=== PATIENT | female | born 2000 | race Caucasian/White ===

== ENCOUNTER 2018-07-09 19:00 | Inpatient (IN) | payer OTHER, SELFPAY ==
[2018-07-09] MEDS: Lactated Ringers 1,000 ML 50 ML IV (19:25)
[2018-07-09 19:32] VITALS: BMI 27.5
[2018-07-09] MEDS: Oxytocin 30 units/NS 500 ml 30 UNITS/500 ML IV.SOLN IV (19:58)
[2018-07-09 20:15] LABS: Hematocrit 37.4 % (37-47); Hemoglobin 12.5 g/dl (12.0-15.0); Mean Corp Hgb Conc 33.4 g/gl (32-36); Mean Corpuscular Hgb 30.6 pg (27.0-32.0); Mean Corpuscular Volume 91.4 fL (81-99); Mean Platelet Vol. 9.4 fl (6.2-12.0); Platelet Count 266 K/mm3 (150-450); RBC Distribution Width CV 13.2 % (11.6-14.6); RBC Distribution Width SD 43.4 fl (35.1-43.9); Red Blood Count 4.09 M/mm3 (4.2-5.4); White Blood Count 11.3 K/mm3 (4.4-11.0)
[2018-07-09 20:19] LABS: Scan Indicated on CBC? Y/N NO
--- NOTE | 2018-07-09 21:16 | PCM.HP.OB ---
History Date of Admission: 07/09/18 Final MARIMAR: 07/03/18 Final MARIMAR Source: US <20 weeks Gestational age: 40 Weeks and 6 Days History of this : This is a 17 year-old, G 1P0 @ 40 6/7 weeks for induction of labor due to 41 weeks tomorrow. She was seen in the office today and had an amniotic fluid volume of 6 cm. I discussed with her at that time risk benefits and alternatives to induction of labor. I recommended induction of labor at 41 weeks versus expectant management with the borderline fluid level measurement. Consent was signed. She denies any regular contractions, vaginal bleeding or leaking of fluid.. Her has been uncomplicated to date other than some nausea and vomiting early in , and some antepartum anemia. Allergies No Known Allergies Allergy (Verified 07/09/18 19:32) Home Medications: Home Medications Ferrous Sulfate [Iron] 325 mg PO BID 07/09/18 Vits [Prenatabs FA] 1 tablet PO DAILY 07/09/18 Smoking Status: Never smoker Number of Fetus(es): 1 Heart Tracing: Normal baseline, moderate variability, spontaneous accelerations. Category 1 and reactive TOCO Analysis: Irregular contractions History Past Pregnancies: Past Pregnancies Delivery Date Name GA/Weeks Outcome Route Weight Infant Gender Labor Length Anesthesia Delivery Location Provider FOB Expected Delivery Method: Spontaneous Vaginal Review of Systems Constitutional: Denies: Chills, Fever Cardiovascular: Denies: Edema Respiratory: Denies: Cough Skin: Denies: Rash Physical Exam General: Alert, Cooperative, No apparent distress Cardiovascular: Regular rate Lungs: Normal air movement Abdomen: Soft, Non-Distended, Gravid, Appropriate for Gestational Age Extremities:: No edema Neurological: Negative for: Slurred Speech OCCUPANCY SPECIALIST: Normal external genitalia Estimated gestational size: Appropriate for gestational size Presentation: Cephalic Cervix Dilation (cm): 3 Station: -1 Effacement (%): 80 Assessment/Plan This is a 17 year-old, 1 para 0 at 40-6/7 weeks for induction of labor. Risk benefits alternatives were discussed. Consent was signed. She desires to proceed. We will proceed with Pitocin and artificial rupture of membranes. Official rupture membranes was performed with return of small amount of moderate meconium-stained fluid. Language Assistant will be notified. Estimated weight is less than 4500 mg and pelvis clinically adequate to expect vaginal delivery
--- NOTE | 2018-07-09 21:20 | HP.PCM_ITS ---
History Date of Admission: 07/09/18 Final MARIMAR: 07/03/18 Final MARIMAR Source: US <20 weeks Gestational age: 40 Weeks and 6 Days History of this : This is a 17 year-old, G 1P0 @ 40 6/7 weeks for induction of labor due to 41 weeks tomorrow. She was seen in the office today and had an amniotic fluid volume of 6 cm. I discussed with her at that time risk benefits and alternatives to induction of labor. I recommended induction of labor at 41 weeks versus expectant management with the borderline fluid level measurement. Consent was signed. She denies any regular contractions, vaginal bleeding or leaking of fluid.. Her has been uncomplicated to date other than some nausea and vomiting early in , and some antepartum anemia. Allergies No Known Allergies Allergy (Verified 07/09/18 19:32) Home Medications: Home Medications Ferrous Sulfate [Iron] 325 mg PO BID 07/09/18 Vits [Prenatabs FA] 1 tablet PO DAILY 07/09/18 Smoking Status: Never smoker Number of Fetus(es): 1 Heart Tracing: Normal baseline, moderate variability, spontaneous accelerations. Category 1 and reactive TOCO Analysis: Irregular contractions History Past Pregnancies: Past Pregnancies Delivery Date Name GA/Weeks Outcome Route Weight Infant Gender Labor Length Anesthesia Delivery Location Provider FOB Expected Delivery Method: Spontaneous Vaginal Review of Systems Constitutional: Denies: Chills, Fever Cardiovascular: Denies: Edema Respiratory: Denies: Cough Skin: Denies: Rash Physical Exam General: Alert, Cooperative, No apparent distress Cardiovascular: Regular rate Lungs: Normal air movement Abdomen: Soft, Non-Distended, Gravid, Appropriate for Gestational Age Extremities:: No edema Neurological: Negative for: Slurred Speech SOIL CONSERVATION AIDE: Normal external genitalia Estimated gestational size: Appropriate for gestational size Presentation: Cephalic Cervix Dilation (cm): 3 Station: -1 Effacement (%): 80 Assessment/Plan This is a 17 year-old, 1 para 0 at 40-6/7 weeks for induction of labor. Risk benefits alternatives were discussed. Consent was signed. She desires to proceed. We will proceed with Pitocin and artificial rupture of membranes. Official rupture membranes was performed with return of small amount of moderate meconium-stained fluid. Social Media Specialist will be notified. Estimated weight is less than 4500 mg and pelvis clinically adequate to expect vaginal delivery
[2018-07-10] MEDS: Lactated Ringers 1,000 ML 50 ML IV ×2 (00:02→03:00)
[2018-07-10] MEDS: Ondansetron 4 MG/2 ML Vial IV (00:35)
[2018-07-10] MEDS: Oxytocin 30 units/NS 500 ml 30 UNITS/500 ML IV.SOLN 334 UNITS IV (03:58)
--- NOTE | 2018-07-10 04:15 | PCM.OB.VAG ---
Vaginal Delivery Maternal Presentation: Medically Indicated Induction Method of Induction: Pitocin, Amniotomy Medical Reason for Induction: - - WEEKS Amniotic Membrane Rupture Type: Artificial Amniotic Fluid Description: Moderate meconium Final MARIMAR: 07/03/18 Gestational age: 41 Weeks and 0 Days Date of Procedure: 07/10/18 Pre-Operative Diagnosis: LABOR Post-Operative Diagnosis: SAME Surgery/ Procedure Performed: Spontaneous Vaginal Delivery Type of Anesthesia: Epidural Description of Procedure: A vigorous female infant was delivered YAJAIRA over a second-degree perineal laceration. A loose nuchal cord ?1 was easily reduced. The remainder the infant was delivered with maternal pushing and gentle traction only in less than 15 seconds. The Pitocin infusion was initiated for active management of the third stage. The cord was clamped and cut after 1 minute. The was attended to by the waiting nursing staff. The placenta was delivered spontaneously and intact. The cervix and vagina were intact. The second-degree perineal laceration was repaired with 3-0 Vicryl suture in a running standard fashion. Sponge and needle counts were correct. A vaginal sweep was completed by me. Presentation: YAJAIRA Placental Delivery Description: Spontaneous Placenta Disposition: [facility] Cord Vessel Description: 3 Vessels Nuchal Cord Compression: Without compression Cord Entanglement: Around neck x 1, loose Drain: Rashid to straight drain Estimated Blood Loss: 200 Infant A gender: Male (1 minute): 9 (5 minute): 9 Episiotomy Description: None Laceration: 2nd degree Medications given after delivery: IV Pitocin Complications: None
[2018-07-10] MEDS: Oxytocin 30 units/NS 500 ml 30 UNITS/500 ML IV.SOLN 167 UNITS IV (04:29)
[2018-07-10] MEDS: Naproxen 250 MG Tablet PO ×2 (06:47→15:46)
[2018-07-10 08:36] VITALS: BP 105/58; PULSE 101; RESP 16; TEMP 36.2; O2SAT 98
[2018-07-10] MEDS: Acetaminophen 500 MG Tablet 1000 MG PO ×2 (12:03→19:58)
[2018-07-10 12:05] VITALS: BP 110/55; PULSE 84; RESP 16; TEMP 36.6; O2SAT 98
[2018-07-10 15:48] VITALS: BP 118/64; PULSE 78; RESP 16; TEMP 36.9; O2SAT 99
[2018-07-10 20:40] VITALS: BP 115/54; PULSE 70; RESP 16; TEMP 36.9; O2SAT 97
[2018-07-10 23:55] VITALS: BP 134/68; PULSE 88; RESP 16; TEMP 36.7; O2SAT 96
[2018-07-11 04:30] VITALS: BP 109/63; PULSE 98; RESP 16; TEMP 36.8; O2SAT 97
[2018-07-11 07:40] VITALS: BP 97/59; PULSE 80; RESP 16; TEMP 36.8; O2SAT 97
--- NOTE | 2018-07-11 12:40 | PCM.PN.OB ---
Subjective: Pain well controlled. Average lochia. No complaints. - Physical Exam General: Alert, Cooperative, No apparent distress Vital Signs Temp Pulse Resp BP Pulse Ox 98.2 F 80 16 97/59 L 97 07/11/18 07:40 07/11/18 07:40 07/11/18 07:40 07/11/18 07:40 07/11/18 07:40 Oxygen Delivery Method Room Air Weight: 72.8 kg Body Mass Index (BMI) 27.5 Intake and Output for Last 24 Hours 07/09/18 07/10/18 07/11/18 23:59 23:59 23:59 Intake Total 178 / 178 2952 / 2952 Output Total 200 / 200 2049 / 2049 Balance -22 / -22 902 / 902 Medical Necessity - Tobacco Use Smoking Status: Never smoker Assessment/Plan day #1 status post vaginal delivery. Patient is doing well. Routine care. Likely discharge home tomorrow. is breast-feeding and doing well.
--- NOTE | 2018-07-11 12:42 | DCINST_ITS ---
Discharge Diet: No Restrictions Discharge Activity: Return to Normal Activity, May not drive while taking narcotic pain medications., May Shower May resume sexual activity in: 4-6 weeks Additional Activity Instructions:: Nothing in the vagina for 4-6 weeks. You may return to work/school in 6 weeks. Call your doctor if your incision/area has: Continuous Slow Oozing, Sudden Increased Bleeding, Increased Pain/ Swelling, Increased Redness, Foul Smelling Discharge Additional Instructions: If you experience any of the following, contact your healthcare provider. * Bleeding that soaks a pad every hour for 2 hours * Fever 100.4 or higher * Unrelieved incision or abdominal pain * Swelling, redness, discharge or bleeding from your incision or episiotomy site * Your incision begins to separate * Problems urinating (including inability to urinate or burning while urinating). * Visual changes * Severe headache * Flu-like symptoms * Pain or redness in one of both of your breasts * Pain, warmth, tenderness or swelling in your legs, especially the calf area * Frequent nausea and vomiting * Symptoms of depression or anxiety If you experience any of the following, call 911 or go to the nearest Emergency Room. * Chest pain * Problems breathing * Seizure activity * Partial or complete paralysis of a body part, slurred speech, weakness or drooping of the face, or a sudden inability to walk or hold your balance Allergies/Adverse Reactions: Allergies No Known Allergies Allergy (Verified 07/09/18 19:32) Medications to take at Discharge Vits [Prenatabs FA ] 1 tablet PO DAILY 07/09/18 Ibuprofen [Motrin] 800 mg PO TID PRN PRN #60 tablet 07/11/18 The following prescriptions were given: Ibuprofen [Motrin] 800 mg PO TID PRN PRN #60 tablet PRN Reason: Pain Please Follow Up With: Alexandria Stewart MD - [phone] When: Call to make an appointment with your provider's office in 1-2 and 6 weeks. Test Results: Test results from this visit will be discussed in further detail at your follow- up appointment, if applicable.
--- NOTE | 2018-07-11 12:42 | PCM.DCVAG ---
Discharge Diet: No Restrictions Discharge Activity: Return to Normal Activity, May not drive while taking narcotic pain medications., May Shower May resume sexual activity in: 4-6 weeks Additional Activity Instructions:: Nothing in the vagina for 4-6 weeks. You may return to work/school in 6 weeks. Call your doctor if your incision/area has: Continuous Slow Oozing, Sudden Increased Bleeding, Increased Pain/ Swelling, Increased Redness, Foul Smelling Discharge Additional Instructions: If you experience any of the following, contact your healthcare provider. Bleeding that soaks a pad every hour for 2 hours Fever 100.4 or higher Unrelieved incision or abdominal pain Swelling, redness, discharge or bleeding from your incision or episiotomy site Your incision begins to separate Problems urinating (including inability to urinate or burning while urinating). Visual changes Severe headache Flu-like symptoms Pain or redness in one of both of your breasts Pain, warmth, tenderness or swelling in your legs, especially the calf area Frequent nausea and vomiting Symptoms of depression or anxiety If you experience any of the following, call 911 or go to the nearest Emergency Room. Chest pain Problems breathing Seizure activity Partial or complete paralysis of a body part, slurred speech, weakness or drooping of the face, or a sudden inability to walk or hold your balance Allergies/Adverse Reactions: Allergies No Known Allergies Allergy (Verified 07/09/18 19:32) Medications to take at Discharge Vits [Prenatabs FA ] 1 tablet PO DAILY 07/09/18 Ibuprofen [Motrin] 800 mg PO TID PRN PRN #60 tablet 07/11/18 The following prescriptions were given: Ibuprofen [Motrin] 800 mg PO TID PRN PRN #60 tablet PRN Reason: Pain Please Follow Up With: Alexandria Stewart MD - [phone] When: Call to make an appointment with your provider's office in 1-2 and 6 weeks. Test Results: Test results from this visit will be discussed in further detail at your follow-up appointment, if applicable.
[2018-07-11 14:45] VITALS: BP 116/69; PULSE 98; RESP 16; TEMP 37; O2SAT 96
[2018-07-11] MEDS: Naproxen 250 MG Tablet PO (14:47)
[2018-07-11] MEDS: Senna/Docusate Sodium 1 Tablet PO (14:48)
[2018-07-11 21:10] VITALS: BP 116/60; PULSE 87; RESP 14; TEMP 37.1; O2SAT 96
[2018-07-12 02:05] VITALS: BP 111/60; PULSE 84; RESP 16; TEMP 36.8; O2SAT 97
[2018-07-12] MEDS: Naproxen 250 MG Tablet PO (06:40)
[2018-07-12 08:19] VITALS: BP 98/54; PULSE 77; RESP 18; TEMP 36.9; O2SAT 97
--- NOTE | 2018-07-12 08:25 | PCM.PN.OB ---
Subjective: Patient sitting up in bed resting at this time. Reports that baby did cluster feeding overnight, she is having a little pain with latching now. Denies issues with urination or ambulation; reports +flatus but no bowel movement yet. Desires discharge to home today. Objective: A+O x 3, NAD Nipples without cracks, blisters. No erythema noted. FF midline 3FB below umbilicus +2/4 reflexes in LE, no edema Scant rubra lochia, perineum well approximated negative calf tenderness in LE to palpation - Physical Exam General: Alert, Oriented x3, Cooperative HEENT: Atraumatic, Normocephalic Neck: Supple, Negative Carotid Bruits Lungs: Normal air movement Cardiovascular: Regular rate, No murmurs Abdomen: Soft, Non Tender Extremities: No edema, Capillary Refill Less than 3 Seconds Skin: No rashes, No breakdown Musculoskeletal: No Tenderness to Palpation of Joints or Extremities Neurological: Cranial nerves II-XII grossly intact Psych/Mental Status: Normal Affect, Appropriate Vital Signs Temp Pulse Resp BP Pulse Ox 98.2 F 84 16 111/60 97 07/12/18 02:05 07/12/18 02:05 07/12/18 02:05 07/12/18 02:05 07/12/18 02:05 Oxygen Delivery Method Room Air Weight: 160 lb 7.944 oz Body Mass Index (BMI) 27.5 Intake and Output for Last 24 Hours 07/10/18 07/11/18 07/12/18 23:59 23:59 23:59 Intake Total 2952 / 2952 Output Total 2049 / 2049 Balance 902 / 902 Medical Necessity - Tobacco Use Smoking Status: Never smoker Assessment/Plan 17 y/o now, s/p , PPD #2, Normal PP Course P: 1) Discharge to home pending discharge 2) Anticipatory health PP discharge teaching done 3) RTC at 2 and 6 weeks PP to [facility] office Madeline PULLIAM
[2018-07-12 14:16] VITALS: BP 105/56; PULSE 92; RESP 18; TEMP 36.1
== END 2018-07-12 15:15 | disposition home or self-care (01) | DRG 807 ==
PROVIDERS: Admitting Provider Obstetrics & Gynecology; Referring Provider Obstetrics & Gynecology; Visit Provider Obstetrics & Gynecology
DX: O48.0 Post-term pregnancy (principal); Z37.0 Single live birth; Z3A.40 40 weeks gestation of pregnancy; Z3A.41 41 weeks gestation of pregnancy; O77.0 Labor and delivery complicated by meconium in amniotic fluid; D64.9 Anemia, unspecified; O99.02 Anemia complicating childbirth; O70.1 Second degree perineal laceration during delivery
CPT/HCPCS: 59025; 59050; 85027; 86850; 86900; 99218; J7120; G0378; J2405

== ENCOUNTER 2019-11-21 07:05 | Inpatient (IN) | payer OTHER, SELFPAY ==
[2019-11-21] VITALS (35 sets, daily range): BP systolic 106–135; BP diastolic 55–78; PULSE 69–118; TEMP 36.6–37.2; O2SAT 96–100; BMI 27.5
[2019-11-21] MEDS: Lactated Ringers 1,000 ML 50 ML IV (07:30)
[2019-11-21 07:49] LABS: Absolute Lymphocyte Count 1.68 X10^3/uL (0.83-4.51); Basophil# 0.02 X10^3/uL; Basophil% 0.2 % (0-1); Eosinophil# 0.03 X10^3/uL; Eosinophils% 0.4 % (0-5); Hematocrit 33.8 % (37-47); Lymphocyte # 1.68 X10^3/ul (4.0); Mean Corp Hgb Conc 32.5 g/dL (32-36); Mean Corpuscular Hgb 27.8 pg (27.0-32.0); Mean Corpuscular Volume 85.6 fL (81-99); Mean Platelet Vol. 9.4 fl (6.2-12.0); Monocyte# 0.59 X10^3/uL; NRBC Flagged by Analyzer 0 % (0-5); Neutrophil % 71.6 % (47-70); Platelet Count 303 K/mm3 (150-450); RBC Distribution Width CV 12.4 % (11.6-14.6); RBC Distribution Width SD 37.9 fl (35.1-43.9); Red Blood Count 3.95 M/mm3 (4.2-5.4); White Blood Count 8.4 K/mm3 (4.4-11.0)
[2019-11-21] MEDS: Oxytocin 30 units/NS 500 ml 30 UNITS/500 ML IV.SOLN IV (08:05)
--- NOTE | 2019-11-21 14:12 | HP.PCM_ITS ---
History Date of Admission: 07/09/18 Final MARIMAR: 11/21/19 Final MARIMAR Source: US <20 weeks Gestational age: 40 Weeks and 0 Days History of this : This is a 18 year-old, 2 para 1-0-0-1 at 40 weeks gestation presents for elective induction of labor. She denies any vaginal bleeding or leaking of fluid. She is had good movement. has been uncomplicated to date. Family medical history significant for her 's maternal grandfather and aunt have polycystic knees, and her has 2 brothers with cystic fibrosis. Obstetrical history is significant for 1 previous full-term vaginal delivery without complications. Allergies No Known Allergies Allergy (Verified 11/21/19 07:34) Home Medications: Home Medications Vits [Prenatabs FA ] 1 tablet PO DAILY 07/09/18 Smoking Status: Never smoker Number of Fetus(es): 1 NST - FHR Rate Baby A Baseline: normal Variability:: Moderate Accelerations:: 15 x 15 NST Reactive:: Yes Uterine Activity:: regular ctxs History Past Pregnancies: Past Pregnancies Delivery Date Name GA/ Weeks Outcome Route Wt Sex Labor Length Anesthesia Delivery Location Provider FOB Expected Delivery Method: Spontaneous Vaginal Review of Systems Constitutional: Denies: Chills, Fever Eyes: Denies: Blurred vision Cardiovascular: Denies: Chest Pain Respiratory: Denies: Cough, Shortness of Breath Genitourinary: Denies: Dysuria Neurological: Denies: Blurred vision, Confusion Physical Exam Vitals: Vital Signs Temp Pulse BP Pulse Ox 98.4 F 78 126/60 H 100 11/21/19 13:28 11/21/19 13:29 11/21/19 13:29 11/21/19 13:29 General: Alert, Cooperative, No apparent distress Cardiovascular: Regular rate Lungs: Normal air movement Abdomen: Soft, Non Tender, Non-Distended, Gravid, Appropriate for Gestational Age Extremities:: No edema Neurological: Cranial nerves II-XII grossly intact INTERNATIONAL STUDENT ADVISOR: Normal external genitalia Estimated gestational size: Appropriate for gestational size Presentation: Cephalic Cervix Dilation (cm): 4 - arom w/ moderate clear fluid Station: -2 Effacement (%): 80 Assessment/Plan This is a 18 year-old, @ 40 weeks for induction of labor EFW < 4000 gm clinically and pelvis clinically adequate to expect . Epidural prn for pain control
[2019-11-21] MEDS: Lactated Ringers 500 ML 999 ML IV (14:46)
[2019-11-21] MEDS: fentaNYL-bupivacaine (epidural) 100 ML BAG EPIDURAL (16:11)
[2019-11-21] MEDS: Lactated Ringers 1,000 ML 200 ML IV (16:11)
[2019-11-21] MEDS: Oxytocin 30 units/NS 500 ml 30 UNITS/500 ML IV.SOLN 334 UNITS IV (17:18)
--- NOTE | 2019-11-21 17:33 | PCM.OPRPT ---
Vaginal Delivery Maternal Presentation: Elective Induction Method of Induction: Pitocin, Amniotomy Amniotic Membrane Rupture Type: Artificial Amniotic Fluid Description: Clear Final MARIMAR: 11/21/19 Final MARIMAR Source: US <20 weeks Gestational age: 40 Weeks and 0 Days Date of Procedure: 11/21/19 Pre-Operative Diagnosis: labor Post-Operative Diagnosis: same Surgery/ Procedure Performed: Spontaneous Vaginal Delivery Type of Anesthesia: Epidural Description of Procedure: A vigorous female was delivered VIRI over a second-degree perineal laceration. A loose nuchal cord ?1 was easily reduced. The remainder the infant was delivered with maternal pushing and gentle traction only in less than 15 seconds. The Pitocin infusion was initiated for active management of the third stage. The cord was clamped and cut after 1 minute. The was attended to by the waiting nursing staff. The placenta was delivered spontaneously and intact. The cervix and vagina were intact. The second-degree perineal laceration was repaired with 3-0 Vicryl suture in a running standard fashion. Sponge and needle counts were correct. A vaginal sweep was completed by me. Presentation: VIRI Placental Delivery Description: Spontaneous Placenta Disposition: [facility] Cord Vessel Description: 3 Vessels Nuchal Cord Compression: Without compression Cord Entanglement: Around neck x 1, loose A gender: Female - Peña (1 minute): 8 (5 minute): 9 Episiotomy Description: None Laceration: 2nd degree - perineal Medications given after delivery: IV Pitocin Complications: None
[2019-11-21] MEDS: 0.9% Saline Lock 10 ML Syringe IV (19:54)
[2019-11-22] VITALS (10 sets, daily range): BP systolic 110–133; BP diastolic 57–81; PULSE 75–104; RESP 16; TEMP 36.2–37.1
[2019-11-22] MEDS: Ibuprofen 600 MG Tablet PO ×2 (01:19→13:33)
[2019-11-22] MEDS: Acetaminophen 500 MG Tablet 1000 MG PO (04:10)
--- NOTE | 2019-11-22 09:35 | PCM.PN.OB ---
Subjective: pain well controlled, average lochia - Physical Exam Vitals/I&O's: Vital Signs Temp Pulse Resp BP Pulse Ox 98.0 F 77 16 110/68 100 11/22/19 08:29 11/22/19 08:30 11/22/19 08:29 11/22/19 08:30 11/21/19 16:25 Oxygen Delivery Method Room Air Weight: 72.665 kg Body Mass Index (BMI) 27.5 Intake and Output for Last 24 Hours 11/20/19 11/21/19 11/22/19 23:59 23:59 23:59 Intake Total 2479.18 / 2479.18 Output Total 1400 / 1400 500 / 500 Balance 1079.18 / 1079.18 -500 / -500 General: Alert, Cooperative, No apparent distress Current Medications Acetaminophen (Tylenol) 1,000 mg PO Q8H PRN PRN PRN Reason: Pain Score 1-3/10 Last Admin: 11/22/19 04:10 Dose: 1,000 mg Documented by: Bisacodyl (Dulcolax) 10 mg RECTAL UD PRN PRN Reason: If no BM Dibucaine (Dibucaine) 1 applic TOPICAL TID PRN PRN; Protocol PRN Reason: Discomfort Hydrocortisone (Hytone) 1 applic TOPICAL TID PRN PRN; Protocol PRN Reason: Discomfort Ibuprofen (Motrin) 600 mg PO Q6H PRN PRN PRN Reason: Pain Score 1-3/10 Last Admin: 11/22/19 01:19 Dose: 600 mg Documented by: Methylergonovine Maleate (Methergine) 0.2 mg IM X1 PRN PRN Reason: Excess bleeding/uterine atony Ondansetron HCl (Zofran) 4 mg IV Q4H PRN PRN PRN Reason: Nausea Senna/Docusate Sodium (Senokot-S, Reena-Colace) 1 - 2 tablet PO DAILY PRN PRN PRN Reason: Constipation Simethicone (Mylicon) 80 mg PO PCHS PRN PRN Reason: Indigestion/Stomach pain Sodium Chloride () 5 - 15 ml IV UD PRN PRN Reason: SALINE FLUSH Last Admin: 11/21/19 19:54 Dose: 10 ml Documented by: Medical Necessity - Tobacco Use Smoking Status: Never smoker Assessment/Plan PPD#1 s/p infant and doing well desires d/c home today
--- NOTE | 2019-11-22 09:37 | DCINST_ITS ---
Discharge Diet: No Restrictions Discharge Activity: Return to Normal Activity, May not drive while taking narcotic pain medications., May Shower May resume sexual activity in: 4-6 weeks Additional Activity Instructions:: Nothing in the vagina for 4-6 weeks. You may return to work/school in 6 weeks. Call your doctor if your incision/area has: Continuous Slow Oozing, Sudden Increased Bleeding, Increased Pain/ Swelling, Increased Redness, Foul Smelling Discharge Additional Instructions: If you experience any of the following, contact your healthcare provider. * Bleeding that soaks a pad every hour for 2 hours * Fever 100.4 or higher * Unrelieved incision or abdominal pain * Swelling, redness, discharge or bleeding from your incision or episiotomy site * Your incision begins to separate * Problems urinating (including inability to urinate or burning while urinating). * Visual changes * Severe headache * Flu-like symptoms * Pain or redness in one of both of your breasts * Pain, warmth, tenderness or swelling in your legs, especially the calf area * Frequent nausea and vomiting * Symptoms of depression or anxiety If you experience any of the following, call 911 or go to the nearest Emergency Room. * Chest pain * Problems breathing * Seizure activity * Partial or complete paralysis of a body part, slurred speech, weakness or drooping of the face, or a sudden inability to walk or hold your balance Allergies/Adverse Reactions: Allergies No Known Allergies Allergy (Verified 11/21/19 07:34) Medications to take at Discharge Vits [Prenatabs FA ] 1 tablet PO DAILY 07/09/18 Please Follow Up With: Alexandria Stewart MD - [phone] When: Call to make an appointment with your doctor in 1-2 and 6 weeks. These can be virtual or telehealth visits if you aren't having any problems. Test Results: Test results from this visit will be discussed in further detail at your follow- up appointment, if applicable.
--- NOTE | 2019-11-22 09:37 | PCM.DCVAG ---
Discharge Diet: No Restrictions Discharge Activity: Return to Normal Activity, May not drive while taking narcotic pain medications., May Shower May resume sexual activity in: 4-6 weeks Additional Activity Instructions:: Nothing in the vagina for 4-6 weeks. You may return to work/school in 6 weeks. Call your doctor if your incision/area has: Continuous Slow Oozing, Sudden Increased Bleeding, Increased Pain/ Swelling, Increased Redness, Foul Smelling Discharge Additional Instructions: If you experience any of the following, contact your healthcare provider. Bleeding that soaks a pad every hour for 2 hours Fever 100.4 or higher Unrelieved incision or abdominal pain Swelling, redness, discharge or bleeding from your incision or episiotomy site Your incision begins to separate Problems urinating (including inability to urinate or burning while urinating). Visual changes Severe headache Flu-like symptoms Pain or redness in one of both of your breasts Pain, warmth, tenderness or swelling in your legs, especially the calf area Frequent nausea and vomiting Symptoms of depression or anxiety If you experience any of the following, call 911 or go to the nearest Emergency Room. Chest pain Problems breathing Seizure activity Partial or complete paralysis of a body part, slurred speech, weakness or drooping of the face, or a sudden inability to walk or hold your balance Allergies/Adverse Reactions: Allergies No Known Allergies Allergy (Verified 11/21/19 07:34) Medications to take at Discharge Vits [Prenatabs FA ] 1 tablet PO DAILY 07/09/18 Please Follow Up With: Alexandria Stewart MD - [phone] When: Call to make an appointment with your doctor in 1-2 and 6 weeks. These can be virtual or telehealth visits if you aren't having any problems. Test Results: Test results from this visit will be discussed in further detail at your follow-up appointment, if applicable.
== END 2019-11-22 18:15 | disposition home or self-care (01) | DRG 807 ==
PROVIDERS: Admitting Provider Obstetrics & Gynecology; Visit Provider Obstetrics & Gynecology
DX: O69.81X0 Labor and delivery complicated by cord around neck, without compression, not applicable or unspecified (principal); Z37.0 Single live birth; Z3A.40 40 weeks gestation of pregnancy; O70.1 Second degree perineal laceration during delivery
CPT/HCPCS: 59025; 59050; 85025; 86850; 86900; 86901; 99218; J7120; A4216; G0378

== ENCOUNTER 2022-12-25 13:00 | Inpatient (IN) | payer OTHER, SELFPAY ==
[2022-12-25] VITALS (57 sets, daily range): BP systolic 98–134; BP diastolic 52–77; PULSE 74–125; RESP 16; TEMP 36.3–37; O2SAT 84–100; BMI 27.9
[2022-12-25] MEDS: Lactated Ringers 1,000 ML 50 ML IV (13:25)
[2022-12-25 13:47] LABS: Absolute Lymphocyte Count 1.56 X10^3/uL (0.83-4.51); Absolute Neutrophil Count 5.4 X10^3/uL (2.0-7.7); Basophil# 0.02 X10^3/uL; Basophil% 0.3 % (0-1); Eosinophil# 0.03 X10^3/uL; Eosinophils% 0.4 % (0-5); Hematocrit 32.4 % (37-47); Hemoglobin 11.2 g/dL (12.0-15.0); Lymphocyte # 1.56 X10^3/ul (0.83-4.51); Lymphocyte % 20.7 % (19-41); Mean Corp Hgb Conc 34.6 g/dL (32-36); Mean Corpuscular Hgb 29.8 pg (27.0-32.0); Mean Corpuscular Volume 86.2 fL (81-99); Mean Platelet Vol. 9.3 fl (6.2-12.0); Monocyte# 0.52 X10^3/uL; Monocyte% 6.9 % (0-10); NRBC Flagged by Analyzer 0 % (0-5); Neutrophil # 5.36 X10^3/uL (2.7-7.7); Neutrophil % 71.2 % (47-70); Platelet Count 301 K/mm3 (150-450); RBC Distribution Width CV 12.3 % (11.6-14.6); RBC Distribution Width SD 38.7 fl (35.1-43.9); Red Blood Count 3.76 M/mm3 (4.2-5.4); White Blood Count 7.5 K/mm3 (4.4-11.0)
[2022-12-25] MEDS: Oxytocin 15 Units/NS 250ml 15 UNITS/250 ML IV.SOLN 2 UNITS IV (14:19)
[2022-12-25 14:32] LABS: Syphilis Antibodies Non-reactive
[2022-12-25] MEDS: LACTATED RINGERS 500 ML 999 ML IV (17:47)
--- NOTE | 2022-12-25 17:53 | PCM.HP.OB ---
HPI - General General Date of Admission: 12/25/22 Date of Service: 12/25/22 Chief Complaint: induction HPI Narrative CHARANJIT NAZARIO, is a 22 3 para 2 with EDC of 12/25/2022 presents for induction of labor. She denies any vaginal bleeding or leaking of fluid. Her has been uncomplicated to date. Maternal Data Information Final MARIMAR: 12/25/22 Gestational age: 40 PFSH PFSH Home Medications vits,calcium no.78-iron fumarate-folic acid 29 mg-1 mg tablet (Prenatabs FA) 1 tab PO DAILY 07/09/18 [History Last Taken 12/24/22 21:00] Allergy/AdvReac Type Severity Reaction Status Date / Time No Known Allergies Allergy Verified 12/25/22 13:20 Surgical History History of surgery Social History Smoking Status: Never smoker History Elective abortions Hx Para 2 Spontaneous abortions Hx # Term Pregnancies Ectopic pregnancies Hx # Pregnancies Multiple births # of living children ROS Constitutional Constitutional: Denies fatigue, fever(s) or malaise Eyes Eyes: Denies change in vision ENT HEENT: Denies dizziness or headache(s) Cardiovascular Cardiovascular: Denies chest pain, dyspnea or lightheadedness Respiratory/Chest Respiratory/Chest: Denies cough or dyspnea Gastrointestinal Gastrointestinal: Denies change in bowel habits Genitourinary Genitourinary: Denies burning urination or genital lesions Integumentary Integumentary: Denies rash Neurologic Neurologic: Denies confusion, dizziness, headache(s), numbness or weakness Vital Signs Vital Signs Vital Signs: 12/25/22 13:56 12/25/22 13:56 12/25/22 13:56 Temperature Temperature Source Temporal Pulse Rate 90 Blood Pressure 109/61 BP Systolic 109 BP Diastolic 61 Pulse Ox 12/25/22 13:56 12/25/22 13:56 12/25/22 15:11 Temperature 97.6 F L Temperature Source Pulse Rate Blood Pressure 103/57 L BP Systolic 103 BP Diastolic 57 Pulse Ox 98 12/25/22 15:11 12/25/22 15:11 12/25/22 15:11 Temperature Temperature Source Temporal Pulse Rate 78 Blood Pressure BP Systolic BP Diastolic Pulse Ox 97 12/25/22 15:11 12/25/22 15:54 12/25/22 15:54 Temperature 97.4 F L Temperature Source Pulse Rate 74 Blood Pressure 112/59 L BP Systolic 112 BP Diastolic 59 Pulse Ox 12/25/22 15:54 12/25/22 15:54 12/25/22 15:54 Temperature 97.7 F L Temperature Source Temporal Pulse Rate Blood Pressure BP Systolic BP Diastolic Pulse Ox 98 12/25/22 17:02 12/25/22 17:02 12/25/22 17:02 Temperature Temperature Source Temporal Pulse Rate 83 Blood Pressure 129/60 H BP Systolic 129 BP Diastolic 60 Pulse Ox 12/25/22 17:02 12/25/22 17:02 Temperature 97.6 F L Temperature Source Pulse Rate Blood Pressure BP Systolic BP Diastolic Pulse Ox 100 Weight Weight: 73.936 kg Body Mass Index (BMI) 27.9 Physical Exam Const alert and no apparent distress General Appearance: cooperative HEENT normocephalic Resp normal respiratory effort Cardio regular rate GI soft to palpation GI Narrative: gravid, nontender, appropriate for gestational age Extremity no calf tenderness General Extremity: edema Skin no wounds Rashes: No rashes noted Psych activity/motor behavior normal Labs Labs Labs: Blood Type A POSITIVE Antibody Screen NEGATIVE Hct 32.4 % (37-47) L Hgb 11.2 g/dL (12.0-15.0) L Syphilis Total Ab Non-reactive Rhogam given: No Assessment & Plan (1) 40 weeks gestation of : PLAN: Risk benefits and alternatives to Pitocin and artificial rupture membrane induction labor him discussed with the patient, her questions were answered to her satisfaction, consent was signed and she desires to proceed. Estimated weight is less than 4500 g clinically and pelvis clinically adequate to expect vaginal delivery. May use routine pain management measures as desired
[2022-12-25] MEDS: fentaNYL-bupivacaine (epidural) 100 ML BAG EPIDURAL (18:20)
--- NOTE | 2022-12-25 19:38 | EX.PCM.OBRPT ---
Assessment & Plan (1) (spontaneous vaginal delivery): Maternal Data Information Final MARIMAR: 12/25/22 Gestational age: 40 0/7 Vaginal Delivery Maternal Presentation Maternal Presentation: Elective Induction Type of Induction: Pitocin and Amniotomy Operative Information Date of Procedure: 12/25/22 Pre-Operative Diagnosis: labor Post-Operative Diagnosis: same Surgery / Procedure Performed: Spontaneous Vaginal Delivery Type of Anesthesia: Epidural Drain: Rashid to straight drain Estimated Blood Loss: 200 Time of Delivery: 19:24 Findings Description of Procedure: A vigorous female infant was delivered VIRI over a second-degree perineal laceration. A loose nuchal cord ?1 was easily reduced. The remainder the infant was delivered with maternal pushing and gentle traction only in less than 15 seconds. The Pitocin infusion was initiated for active management of the third stage. The cord was clamped and cut after cord pulsations ceased. The was attended to by the waiting nursing staff. The placenta was delivered spontaneously and intact. The cervix and vagina were intact. The second-degree perineal laceration was repaired with 3-0 Vicryl suture in a running standard fashion. Sponge and needle counts were correct. A vaginal sweep was completed by me. Presentation: VIRI Amniotic Membrane Rupture Type: Spontaneous Amniotic Fluid Description: Moderate meconium Placental Delivery Description: Spontaneous (true knot in the cord) Placenta Disposition: [facility] Cord Vessel Description: 3 Vessels Cord Entanglement: None Nuchal Cord Compression: Without compression A Gender: Female (Cambry) (1 minute): 9 (5 minute): 9 Delayed Cord Clamping: Yes Post Vaginal Delivery Medications Given After Delivery: IV Pitocin Episiotomy Description: None Laceration: 2nd degree Complication Complications: None
[2022-12-25] MEDS: Oxytocin 15 Units/NS 250ml 15 UNITS/250 ML IV.SOLN 83 UNITS IV (19:58)
[2022-12-26] VITALS (8 sets, daily range): BP systolic 92–116; BP diastolic 53–64; PULSE 79–92; RESP 16; TEMP 36.4–36.6; O2SAT 97
[2022-12-26] MEDS: Ibuprofen 600 MG Tablet PO ×2 (03:25→09:39)
--- NOTE | 2022-12-26 08:43 | PN.OBGYN_ITS ---
Subjective Subjective No complaints Objective Data Objective Data Vital Signs: Vital Signs Temp Pulse Resp BP Pulse Ox O2 Del Method 97.7 F L 92 16 108/56 L 97 Room Air 12/26/22 04:17 12/26/22 04:17 12/26/22 04:17 12/26/22 04:17 12/26/22 04:17 12/26/22 04:17 Oxygen Delivery Method Room Air Weight: 163 lb Body Mass Index (BMI) 27.9 Intake & Output: Intake and Output for Last 24 Hours 12/24/22 12/25/22 12/26/22 23:59 23:59 23:59 Intake Total 1638.50 / 1638.50 Output Total 500 / 500 Balance 1138.50 / 1138.50 Lab / Micro Data Result Diagrams: 12/25/22 13:25 Labs: Laboratory Results - last 24 hr 12/25/22 13:25: WBC 7.5, RBC 3.76 L, Hgb 11.2 L, Hct 32.4 L, MCV 86.2, MCH 29.8, MCHC 34.6, RDW Std Deviation 38.7, RDW Coeff of [place] 12.3, Plt Count 301, MPV 9.3, Immature Gran % (Auto) 0.500, Neut % (Auto) 71.2 H, Lymph % (Auto) 20.7, [place] % (Auto) 6.9, Eos % (Auto) 0.4, Baso % (Auto) 0.3, Absolute Neuts (auto) 5.4, Absolute Lymphs (auto) 1.56, Nucleated RBC % 0 12/25/22 13:25: Blood Type A POSITIVE, Antibody Screen NEGATIVE 12/25/22 13:25: Syphilis Total Ab Non-reactive Physical Exam Const alert, oriented x3 and no apparent distress HEENT normocephalic GI soft to palpation, non-tender and non-distended GI Narrative: fundus firm, mid & below umbilicus Extremity normal to inspection and no calf tenderness Assessment & Plan (1) (spontaneous vaginal delivery): COMMENT: PPD#1 PLAN: Plan D/c stormy
--- NOTE | 2022-12-26 08:45 | DCINST_ITS ---
Discharge Instructions Follow Up Care Please Follow Up With: Alexandria Stewart MD When: 2 & 6 weeks Test Results: Test results from this visit will be discussed in further detail at your follow- up appointment, if applicable. Discharge Plan Admission Admit Date/Time: 12/25/22 13:00 Primary Reason for Your Visit: vaginal delivery Attending Provider: Alexandria Stewart Primary Care Provider: Aleksandr Bedolla Discharge Orders/Prescriptions Prescriptions: New acetaminophen 500 mg Tablet 1,000 mg PO Q6H PRN PRN (Reason: Pain 1-10 Or Fever) Qty: 0 0RF ibuprofen 600 mg Tablet 600 mg PO Q6H PRN PRN (Reason: Pain Score 1-3) Qty: 0 0RF Continued Prenatabs FA 1 TABLET tablet 1 tab PO DAILY Referrals / Follow Up: Aleksandr Bedolla DO [Primary Care Provider] - Disposition Disposition (needs filled in before D/C Order can be placed): Home, Self Care
--- NOTE | 2022-12-30 12:55 | NURSING ---
No answer on the follow up phone call. Left voicemail.
== END 2022-12-26 20:25 | disposition home or self-care (01) | DRG 807 ==
PROVIDERS: Admitting Provider Obstetrics & Gynecology; PCP Family Medicine; Referring Provider Obstetrics & Gynecology; Visit Provider Obstetrics & Gynecology
DX: O70.1 Second degree perineal laceration during delivery (principal); Z37.0 Single live birth; O26.23 Pregnancy care for patient with recurrent pregnancy loss, third trimester; O77.0 Labor and delivery complicated by meconium in amniotic fluid; O69.81X0 Labor and delivery complicated by cord around neck, without compression, not applicable or unspecified; Z3A.40 40 weeks gestation of pregnancy
CPT/HCPCS: 59025; 59050; 85025; 86780; 86850; 86900; 86901; 99221; J7120; G0378

== ENCOUNTER 2024-06-24 17:24 | Emergency (ER) | payer OTHER, SELFPAY ==
[2024-06-24 17:25] VITALS: BP 98/65; PULSE 72; RESP 16; TEMP 36.3; O2SAT 100; BMI 25.9
== END 2024-06-24 19:01 | disposition home or self-care (01) ==
PROVIDERS: Emergency Provider Emergency Medicine; PCP Family Medicine; Visit Provider Emergency Medicine
DX: O9A.212 Injury, poisoning and certain other consequences of external causes complicating pregnancy, second trimester (principal); S91.332A Puncture wound without foreign body, left foot, initial encounter; W25.XXXA Contact with sharp glass, initial encounter; Z3A.23 23 weeks gestation of pregnancy
CPT/HCPCS: 73630; 99283

== ENCOUNTER 2024-10-19 04:37 | Inpatient (IN) | payer OTHER, SELFPAY ==
[2024-10-19] VITALS (65 sets, daily range): BP systolic 86–128; BP diastolic 49–79; PULSE 71–134; RESP 14–18; TEMP 36.6–37.6; O2SAT 93–100; BMI 28.3
[2024-10-19] MEDS: Lactated Ringers 1,000 ML 999 ML IV ×2 (04:55→05:55)
[2024-10-19 05:02] LABS: Absolute Lymphocyte Count 1.76 X10^3/uL (0.83-4.51); Absolute Neutrophil Count 8.3 X10^3/uL (2.0-7.7); Basophil# 0.03 X10^3/uL; Basophil% 0.3 % (0-1); Eosinophil# 0.05 X10^3/uL; Eosinophils% 0.5 % (0-5); Hematocrit 32.7 % (37-47); Hemoglobin 10.9 g/dL (12.0-15.0); Lymphocyte # 1.76 X10^3/ul (0.83-4.51); Lymphocyte % 16.4 % (19-41); Mean Corp Hgb Conc 33.3 g/dL (32-36); Mean Corpuscular Hgb 27.8 pg (27.0-32.0); Mean Corpuscular Volume 83.4 fL (81-99); Mean Platelet Vol. 9.1 fl (6.2-12.0); Monocyte# 0.57 X10^3/uL; Monocyte% 5.3 % (0-10); NRBC Flagged by Analyzer 0 % (0-5); Neutrophil # 8.26 X10^3/uL (2.7-7.7); Platelet Count 280 K/mm3 (150-450); RBC Distribution Width CV 13.3 % (11.6-14.6); Red Blood Count 3.92 M/mm3 (4.2-5.4); White Blood Count 10.7 K/mm3 (4.4-11.0)
[2024-10-19 05:27] LABS: Syphilis Antibodies Nonreactive (Nonreactive)
[2024-10-19] MEDS: fentaNYL-bupivacaine (epidural) 100 ML BAG EPIDURAL (05:57)
[2024-10-19] MEDS: Oxytocin 15 Units/NS 250ml 15 UNITS/250 ML IV.SOLN 2 UNITS IV (08:25)
--- NOTE | 2024-10-19 08:30 | HP.PCM.OB_ITS ---
HPI - General General Date of Admission: 10/19/24 Date of Service: 10/19/24 Chief Complaint: contraction HPI Narrative CHARANJIT NAZARIO, is a 23 F who presents c/o ctxs. Good FM. No gross VB or LOF. Maternal Data Information Final MARIMAR: 10/21/24 Gestational age: 39 5/7 [facility] Medical History (Updated 10/19/24 @ 08:[address] Alexandria Stewart MD) Oligohydramnios Home Medications ?Medication ?Instructions ?Recorded ?Last Taken ?Type vit no.95-ferrous 1 tab PO DAILY 10/19/2412/09 23:26 History fumarate 28 mg-folic acid 800 mcg tablet () Allergy/AdvReac Type Severity Reaction Status Date / Time No Known Allergies Allergy Verified 10/19/24 04:26 Family History no significant family his Surgical History History of surgery Social History Smoking Status: Never smoker History Elective abortions Hx Para 3 Spontaneous abortions Hx # Term Pregnancies Ectopic pregnancies Hx # Pregnancies Multiple births # of living children ROS Constitutional Constitutional: Denies fatigue, fever(s) or malaise Eyes Eyes: Denies change in vision ENT HEENT: Denies dizziness or headache(s) Cardiovascular Cardiovascular: Denies chest pain, dyspnea or lightheadedness Respiratory/Chest Respiratory/Chest: Denies cough or dyspnea Gastrointestinal Gastrointestinal: Denies change in bowel habits Genitourinary Genitourinary: Denies burning urination or genital lesions Integumentary Integumentary: Denies rash Neurologic Neurologic: Denies confusion, dizziness, headache(s), numbness or weakness Vital Signs Vital Signs Vital Signs: 10/19/24 04:23 10/19/24 04:23 10/19/24 04:23 Temperature Temperature Source Temporal Pulse Rate 95 Respiratory Rate Blood Pressure 107/60 BP Systolic 107 BP Diastolic 60 Pulse Ox 10/19/24 04:23 10/19/24 04:23 10/19/24 04:23 Temperature Temperature Source Pulse Rate 88 Respiratory Rate 16 Blood Pressure BP Systolic BP Diastolic Pulse Ox 97 10/19/24 04:23 10/19/24 05:35 10/19/24 05:35 Temperature 98.4 F Temperature Source Pulse Rate 94 Respiratory Rate Blood Pressure BP Systolic BP Diastolic Pulse Ox 100 10/19/24 05:40 10/19/24 05:40 10/19/24 05:40 Temperature Temperature Source Pulse Rate 89 Respiratory Rate Blood Pressure 123/73 H BP Systolic 123 BP Diastolic 73 Pulse Ox 99 10/19/24 05:40 10/19/24 05:45 10/19/24 05:45 Temperature Temperature Source Pulse Rate 86 Respiratory Rate 16 Blood Pressure 112/66 BP Systolic 112 BP Diastolic 66 Pulse Ox 10/19/24 05:45 10/19/24 05:45 10/19/24 05:50 Temperature Temperature Source Pulse Rate Respiratory Rate 17 Blood Pressure 97/54 L BP Systolic 97 BP Diastolic 54 Pulse Ox 98 10/19/24 05:50 10/19/24 05:50 10/19/24 05:50 Temperature Temperature Source Pulse Rate 91 Respiratory Rate 17 Blood Pressure BP Systolic BP Diastolic Pulse Ox 100 10/19/24 05:55 10/19/24 05:55 10/19/24 05:56 Temperature Temperature Source Pulse Rate 93 Respiratory Rate Blood Pressure 94/52 L BP Systolic 94 BP Diastolic 52 Pulse Ox 100 10/19/24 05:56 10/19/24 05:56 10/19/24 06:00 Temperature Temperature Source Pulse Rate 90 Respiratory Rate 17 Blood Pressure 94/53 L BP Systolic 94 BP Diastolic 53 Pulse Ox 10/19/24 06:00 10/19/24 06:00 10/19/24 06:00 Temperature Temperature Source Temporal Pulse Rate 102 H 86 Respiratory Rate Blood Pressure BP Systolic BP Diastolic Pulse Ox 10/19/24 06:00 10/19/24 06:00 10/19/24 06:00 Temperature 98.4 F Temperature Source Pulse Rate Respiratory Rate 16 Blood Pressure BP Systolic BP Diastolic Pulse Ox 100 10/19/24 06:05 10/19/24 06:05 10/19/24 06:05 Temperature Temperature Source Pulse Rate 87 88 Respiratory Rate Blood Pressure 95/50 L BP Systolic 95 BP Diastolic 50 Pulse Ox 10/19/24 06:05 10/19/24 06:05 10/19/24 06:10 Temperature Temperature Source Pulse Rate 87 Respiratory Rate 16 Blood Pressure BP Systolic BP Diastolic Pulse Ox 100 10/19/24 06:10 10/19/24 06:12 10/19/24 06:12 Temperature Temperature Source Pulse Rate 91 Respiratory Rate Blood Pressure 91/52 L BP Systolic 91 BP Diastolic 52 Pulse Ox 100 10/19/24 06:12 10/19/24 06:15 10/19/24 06:15 Temperature Temperature Source Pulse Rate 84 Respiratory Rate 16 Blood Pressure 86/49 L BP Systolic 86 BP Diastolic 49 Pulse Ox 10/19/24 06:15 10/19/24 06:15 10/19/24 06:20 Temperature Temperature Source Pulse Rate Respiratory Rate 17 Blood Pressure 89/52 L BP Systolic 89 BP Diastolic 52 Pulse Ox 100 10/19/24 06:20 10/19/24 06:20 10/19/24 06:20 Temperature Temperature Source Pulse Rate 83 Respiratory Rate 18 Blood Pressure BP Systolic BP Diastolic Pulse Ox 100 10/19/24 06:23 10/19/24 06:23 10/19/24 06:25 Temperature Temperature Source Pulse Rate 106 H Respiratory Rate Blood Pressure 115/58 L BP Systolic 115 BP Diastolic 58 Pulse Ox 93 10/19/24 06:25 10/19/24 06:25 10/19/24 06:25 Temperature Temperature Source Pulse Rate 74 Respiratory Rate 16 Blood Pressure BP Systolic BP Diastolic Pulse Ox 97 10/19/24 06:26 10/19/24 06:26 10/19/24 06:30 Temperature Temperature Source Pulse Rate 71 Respiratory Rate Blood Pressure 107/56 L 102/54 L BP Systolic 107 102 BP Diastolic 56 54 Pulse Ox 10/19/24 06:30 10/19/24 06:30 10/19/24 06:30 Temperature Temperature Source Pulse Rate 83 79 Respiratory Rate Blood Pressure BP Systolic BP Diastolic Pulse Ox 97 10/19/24 06:35 10/19/24 06:35 10/19/24 06:35 Temperature Temperature Source Pulse Rate 81 Respiratory Rate Blood Pressure 101/55 L BP Systolic 101 BP Diastolic 55 Pulse Ox 97 10/19/24 06:40 10/19/24 06:40 10/19/24 06:41 Temperature Temperature Source Pulse Rate 86 Respiratory Rate Blood Pressure 100/55 L BP Systolic 100 BP Diastolic 55 Pulse Ox 98 10/19/24 06:41 10/19/24 06:41 10/19/24 06:45 Temperature Temperature Source Pulse Rate 80 79 Respiratory Rate 17 Blood Pressure BP Systolic BP Diastolic Pulse Ox 10/19/24 06:45 10/19/24 06:46 10/19/24 06:46 Temperature Temperature Source Pulse Rate 78 Respiratory Rate Blood Pressure 93/54 L BP Systolic 93 BP Diastolic 54 Pulse Ox 97 10/19/24 06:46 10/19/24 06:50 10/19/24 06:50 Temperature Temperature Source Pulse Rate 82 Respiratory Rate 18 Blood Pressure 89/54 L BP Systolic 89 BP Diastolic 54 Pulse Ox 10/19/24 06:50 10/19/24 06:55 10/19/24 06:55 Temperature Temperature Source Pulse Rate 80 Respiratory Rate Blood Pressure 95/55 L BP Systolic 95 BP Diastolic 55 Pulse Ox 97 10/19/24 06:55 10/19/24 06:55 10/19/24 06:55 Temperature Temperature Source Pulse Rate 78 Respiratory Rate 17 Blood Pressure BP Systolic BP Diastolic Pulse Ox 97 10/19/24 07:00 10/19/24 07:00 10/19/24 07:00 Temperature Temperature Source Pulse Rate 75 77 Respiratory Rate Blood Pressure 100/52 L BP Systolic 100 BP Diastolic 52 Pulse Ox 10/19/24 07:00 10/19/24 07:05 10/19/24 07:05 Temperature Temperature Source Pulse Rate 77 Respiratory Rate Blood Pressure 106/53 L BP Systolic 106 BP Diastolic 53 Pulse Ox 97 10/19/24 07:05 10/19/24 07:10 10/19/24 07:10 Temperature Temperature Source Pulse Rate 83 Respiratory Rate Blood Pressure BP Systolic BP Diastolic Pulse Ox 97 97 10/19/24 07:15 10/19/24 07:15 10/19/24 07:20 Temperature Temperature Source Pulse Rate 94 88 Respiratory Rate Blood Pressure BP Systolic BP Diastolic Pulse Ox 98 10/19/24 07:20 10/19/24 07:25 10/19/24 07:25 Temperature Temperature Source Pulse Rate 87 Respiratory Rate Blood Pressure BP Systolic BP Diastolic Pulse Ox 97 97 10/19/24 07:27 10/19/24 07:27 10/19/24 07:44 Temperature Temperature Source Pulse Rate 90 98 Respiratory Rate Blood Pressure BP Systolic BP Diastolic Pulse Ox 94 10/19/24 07:44 10/19/24 07:45 10/19/24 07:45 Temperature Temperature Source Pulse Rate 98 Respiratory Rate Blood Pressure 101/50 L BP Systolic 101 BP Diastolic 50 Pulse Ox 96 10/19/24 07:45 10/19/24 07:45 10/19/24 07:45 Temperature 98.8 F Temperature Source Temporal Pulse Rate Respiratory Rate 16 Blood Pressure BP Systolic BP Diastolic Pulse Ox Weight Weight: 74.8 kg Body Mass Index (BMI) 28.3 Physical Exam Narrative cervix 5-6/60-1, soft, head well applied. AROM w/ return of moderate amount of MSF Const alert and no apparent distress General Appearance: cooperative HEENT normocephalic Resp normal respiratory effort Cardio regular rate GI soft to palpation GI Narrative: gravid, nontender, appropriate for gestational age Extremity no calf tenderness General Extremity: edema Skin no wounds Rashes: No rashes noted Psych activity/motor behavior normal Labs Labs Labs: Blood Type A POSITIVE Antibody Screen NEGATIVE Hct 32.7 % (37-47) L Hgb 10.9 g/dL (12.0-15.0) L Syphilis Total Ab Nonreactive (Nonreactive) Rhogam given: No Assessment & Plan (1) 39 weeks gestation of : (2) Spontaneous onset of labor: PLAN: Plan Patient presents in active labor. Estimated weight is less than 4500 g clinically and pelvis clinically adequate to expect vaginal delivery. May have routine pain control measures as needed for pain control in labor. Moderate meconium stained fluid. Delivery team aware. Clinical Haematologist notified. Pitocin augmentation if needed.
--- NOTE | 2024-10-19 09:15 | OB.VAGDELI_ITS ---
Assessment & Plan (1) (spontaneous vaginal delivery): Maternal Data Information Final MARIMAR: 10/21/24 Gestational age: 39 5/7 Vaginal Delivery Maternal Presentation Maternal Presentation: Active Labor Vaginal Delivery Information Procedure Performed: Spontaneous Vaginal Delivery Surgeon/Practitioner: Alexandria Stewart Date of Procedure: 10/19/24 Pre-Procedure Diagnosis: labor, meconium Post-Procedure Diagnosis: same Type of anesthesia: Epidural Special Medications: none Estimated Blood Loss: 300 Time of Delivery: 08:55 Findings Description of procedure: A vigorous female was delivered VIRI over small first-degree perineal laceration. The remainder the was delivered with maternal pushing and gentle traction only in less than 15 seconds. The Pitocin infusion was initiated for active management of the third stage. The cord was clamped and cut after cord pulsations ceased. The was attended to by the waiting nursing staff and laborer heading. The placenta was delivered spontaneously and intact. The cervix and vagina were intact. The small laceration was repaired with 3-0 Vicryl Rapide after discussion with the patient. Sponge and needle counts were correct. A vaginal sweep was completed by me. Presentation: VIRI Amniotic Membrane Rupture Type: Artificial Amniotic Fluid Description: Moderate meconium Placental Delivery Description: Spontaneous Placenta Disposition: [facility] Specimen collected: No Cord Vessel Description: 3 Vessels Cord Entanglement: None Infant A Gender: Female (Diane) (1 minute): 8 (5 minute): 9 Delayed Cord Clamping: Yes Promotions Associate assistant press operator offset: No Post Vaginal Deli Medications given after delivery: IV Pitocin Episiotomy Description: None Laceration: 1st degree Complication Complications: No
[2024-10-19] MEDS: Oxytocin 15 Units/NS 250ml 15 UNITS/250 ML IV.SOLN 83 UNITS IV (09:45)
[2024-10-19] MEDS: Ibuprofen 600 MG Tablet PO ×2 (14:58→21:39)
[2024-10-19] MEDS: Acetaminophen 500 MG Tablet 1000 MG PO (19:43)
[2024-10-20 00:40] VITALS: BP 97/58; PULSE 69; RESP 16; TEMP 36.4; O2SAT 97
[2024-10-20 03:47] VITALS: BP 99/59; PULSE 87; RESP 16; TEMP 36.8; O2SAT 97
--- NOTE | 2024-10-20 06:26 | DS.PCM_ITS ---
Providers Date of Admission: 10/19/24 Primary Care Physician: Dr. Aleksandr Bedolla DO Reason For Visit: VAGINAL DELIVERY Diagnosis Discharge Diagnosis (1) (spontaneous vaginal delivery): Status: Acute Code(s): O80 - Encounter for full-term uncomplicated delivery Medications at Discharge Home Medications vit no.95-ferrous fumarate 28 mg-folic acid 800 mcg tablet () 1 tab PO DAILY 10/19/24 acetaminophen 500 mg tablet 1,000 mg (2 x 500 mg) PO Q6H PRN PRN Pain 1-10 Or Fever #0 tabs 10/20/24 ibuprofen 600 mg tablet 600 mg PO Q6H PRN PRN Pain Score 1-10 #0 tabs 10/20/24 Hospital Course Operations None Procedures None Summary of Care Provided Minutes Spent on Discharge: 15 Hospital Course: Patient had vaginal delivery. Hospital course was uneventful. Physical Exam Narrative Patient seen at bedside. Denies pain. Ambulating and voiding without difficulty. Lochia decreased. Desires discharge home today. Const alert and oriented x3 General Appearance: Negative for in distress HEENT normocephalic Eyes General Eye: normal appearance of both eyes Neck General: normal visual inspection Chest Chest: symmetrical chest wall rise Resp normal respiratory effort and normal air movement Effort and Inspection: symmetric chest movement; Negative for tachypneic Auscultation: clear to auscultation bilaterally Cardio regular rate and regular rhythm Peripheral Pulses: pulses 2+ throughout GI normal to inspection, nondistended, normoactive bowel sounds Narrative: Ice to perineum OB / External & Speculum: vaginal bleeding and other Lochia decreasing Uterus Palpation: uterus fundus firm (Below U) Extremity normal to inspection, full ROM and normal capillary refill Skin no rashes or lesions noted Neuro oriented x3, CN's II-XII intact bilaterally and gait normal Psych mental status grossly normal, thought process normal and activity/motor behavior normal Weight / BMI Weight Weight: 164 lb 14.492 oz Body Mass Index (BMI) 28.3 ABG / Lab / Microbiology Data 10/19/24 04:50 D/C Instructions Discharge Diet: No restrictions Discharge Activity: Return to Normal Activity, No Restrictions, May Drive, May Shower and May Take a Tub Bath (Warm water only. No bath salts, soaps, bubbles) May resume sexual activity in: 6-8 weeks Weight Bearing Status: Weight bearing as tolerated Call your doctor if you observe: Fever of 101 or Higher, Inability to urinate, Using more than 1 pad per hour, Shortness of breath, Dizziness, Chest pain, Calf discomfort and Uncontrolled pain DC O2, CPAP, BIPAP Needs Home O2 Discharge instructions: No Please Follow Up With: [facility] Susie WRIGHT When: 2 weeks in office or virtual Meaningful Use Info Meaningful Use Meaningful Use Diagnoses (Choose all that apply): None applicable Ischemic Stroke Statin Dosing Therapy Reference: STATIN DOSE THERAPY REFERENCE: * Patients > 75 years receive moderate or high dose statin therapy. * Patients 75 years or YOUNGER should receive HIGH intensity statin dose unless contraindicated. You will be required to document reason for non-treatment if statin daily dose does not meet guidelines. HIGH DOSE STATIN THERAPY DAILY Atorvastatin > than or = to 40 mg Rosuvastatin > than or = to 20 mg Amlodipine + Atorvastatin > than or = to 2.5/40 mg Ezetimibe + Simvastatin 10/80 mg Simvastatin 80mg Discharge Plan Admission Admit Date/Time: 10/19/24 04:37 Primary Reason for Your Visit: Labor and Delivery Attending Provider: Alexandria Stewart Primary Care Provider: Aleksandr Bedolla Discharge Orders/Prescriptions Prescriptions: New acetaminophen 500 mg Tablet 1,000 mg PO Q6H PRN PRN (Reason: Pain 1-10 Or Fever) Qty: 0 0RF ibuprofen 600 mg Tablet 600 mg PO Q6H PRN PRN (Reason: Pain Score 1-10) Qty: 0 0RF Continued PNV cmb#95-ferrous fumarate-FA [] 28 mg iron- 800 mcg tablet 1 tab PO DAILY Referrals / Follow Up: Aleksandr Bedolla DO [Primary Care Provider] - Disposition Disposition (needs filled in before D/C Order can be placed): Home, Self Care
[2024-10-20] MEDS: Ibuprofen 600 MG Tablet PO (07:52)
[2024-10-20 08:00] VITALS: BP 113/74; PULSE 95; RESP 16; TEMP 36.8
--- NOTE | 2024-10-24 17:15 | MDS.RN ---
Follow up Phone call: Patient reports she is feeling well just tired, bleeding is decreasing. Patient stated she has no s+s of pp complications but is aware how to reach her OB if they develop. Patient stated Diane is doing well, she did reach out to [facility] when Diane first got home as she was spitty. [facility] was able to help her through that and it has resolved. Patient was satisfied with her care.
== END 2024-10-20 10:00 | disposition home or self-care (01) | DRG 807 ==
LOC: WPOUT 04:47 → WP 04:47
PROVIDERS: Admitting Provider Obstetrics & Gynecology; PCP Family Medicine; Visit Provider Obstetrics & Gynecology
DX: O77.0 Labor and delivery complicated by meconium in amniotic fluid (principal); Z37.0 Single live birth; O70.0 First degree perineal laceration during delivery; Z3A.39 39 weeks gestation of pregnancy
CPT/HCPCS: 59025; 59050; 85025; 86780; 86850; 86900; 86901